=== PATIENT | female | born 1960 | race Caucasian/White ===

== ENCOUNTER 2017-12-29 11:10 | Inpatient (IN) | payer MEDICARE, MEDICAID ==
[~2017-12-29] VITALS: Ht 157.5 cm; Wt 75.7 kg
[2017-12-29 11:39] VITALS: BP 137/76
[2017-12-29] MEDS ORDERED: HALOPERIDOL 5 MG TABLET PO PRN (11:45)
[2017-12-29] MEDS ORDERED: LORazepam 2 MG TABLET PO PRN (11:45)
[2017-12-29] MEDS ORDERED: ZOLPIDEM TARTRATE 10 MG TABLET PO PRN (11:45)
[2017-12-29] MEDS ORDERED: OXYC10 PO (12:42)
[2017-12-29] MEDS ORDERED: HYDR-308 PO (12:42)
[2017-12-29] MEDS ORDERED: BUPR100 PO (12:42)
[2017-12-29] MEDS ORDERED: TRAZ150 PO (12:42)
[2017-12-29] MEDS ORDERED: RISP4 PO (12:42)
[2017-12-29] MEDS ORDERED: FLUO-191 PO (12:42)
[2017-12-29 12:45] VITALS: BP 110/69
[2017-12-29] MEDS ORDERED: BuPROPion HCL XL 150 MG ER TABLET PO SCH (15:00)
[2017-12-29] MEDS ORDERED: TraZODone HCL 150 MG TABLET PO SCH ×2 (15:00→21:00)
[2017-12-29 16:00] VITALS: BP 117/60
[2017-12-29] MEDS: RANITIDINE HCL 150 MG TABLET PO SCH (16:32)
[2017-12-29] MEDS ORDERED: ALBUTEROL SULFATE HFA 90 MCG/PUFF 8 GM INHALER IH PRN (17:00)
[2017-12-29] MEDS ORDERED: MAGNESIUM HYDROXIDE SUSPENSION 30 ML UDCUP PO PRN (17:00)
[2017-12-29] MEDS ORDERED: ACETAMINOPHEN 325 MG TABLET PO PRN (17:00)
[2017-12-29] MEDS ORDERED: BENZOCAINE/MENTHOL LOZENGE MM PRN (17:00)
[2017-12-29] MEDS ORDERED: MAG HYDROX/AL HYDROX/SIMETH ES 30 ML SUSPENSION UDCUP PO PRN (17:00)
[2017-12-29] MEDS ORDERED: PETROLATUM,WHITE 71 GM JELLY TP PRN (17:00)
[2017-12-29] MEDS ORDERED: ONDANSETRON HCL 4 MG TABLET PO PRN (17:00)
[2017-12-29] MEDS ORDERED: IBUPROFEN 600 MG TABLET PO PRN (17:00)
[2017-12-29] MEDS ORDERED: BACITRACIN 28.4 GM OINTMENT TP PRN (17:00)
[2017-12-29] MEDS ORDERED: CloNIDine HCL 0.1 MG TABLET PO PRN (17:00)
[2017-12-29] MEDS ORDERED: LOPERAMIDE HCL 2 MG CAPSULE PO PRN (17:00)
[2017-12-29] MEDS: RisperiDONE 2 MG TABLET PO SCH (20:34)
[2017-12-29] MEDS: TraZODone HCL 150 MG TABLET PO SCH (20:34)
[2017-12-30 07:01] VITALS: BP 127/70
[2017-12-30] MEDS: RANITIDINE HCL 150 MG TABLET PO SCH (08:01)
[2017-12-30] MEDS: RisperiDONE 2 MG TABLET PO SCH ×2 (08:01→20:23)
[2017-12-30] MEDS: LITHIUM CARBONATE 300 MG CAPSULE PO SCH ×2 (08:01→16:13)
[2017-12-30] MEDS: BuPROPion HCL 150 MG SR TABLET PO SCH (08:01)
[2017-12-30 08:06] VITALS: BP 114/63
[2017-12-30 08:19] LABS: BASOPHILS % (AUTO) 0.7 % (0.0-2.0); EOSINOPHILS % (AUTO) 5.5 % (1.0-6.0); HEMATOCRIT 34.8 % (36-46); HEMOGLOBIN 12.1 g/dL (12.0-16.0); LYMPHOCYTES % (AUTO) 38.5 % (22.0-44.0); MEAN CORPUSCULAR HGB CONC 34.7 G/dL (31.0-37.0); MEAN CORPUSCULAR VOLUME 92 fL (80-100); MONOCYTES # (AUTO) 0.6 K/uL (0.1-1.0); MONOCYTES % (AUTO) 11.6 % (2.0-9.0); NEUTROPHILS # (AUTO) 2.3 K/uL (1.8-7.7); NEUTROPHILS % (AUTO) 43.7 % (40.0-70.0); PLATELET COUNT (AUTO) 219 K/uL (150-450); RED BLOOD CELL COUNT(AUTO) 3.77 MIL/uL (4.00-5.20); RED CELL DISTRIBUTION WIDTH 14.1 % (11.5-14.5)
[2017-12-30 08:43] LABS: HEMOGLOBIN A1C 5.3 % (4.5-6.2)
[2017-12-30] MEDS ORDERED: OMEPRAZOLE 20 MG CAPSULE PO SCH (09:00)
[2017-12-30] MEDS ORDERED: BuPROPion HCL 75 MG TABLET PO SCH (09:00)
[2017-12-30] MEDS ORDERED: DOCUSATE SODIUM 100 MG CAPSULE PO SCH (09:00)
[2017-12-30 09:41] LABS: ALANINE AMINOTRANSFERASE 44 U/L (12-78); ALKALINE PHOSPHATASE 75 U/L (46-116); ANION GAP 10 mmol/L (8-16); ASPARTATE AMINOTRANSFERASE 23 U/L (15-37); BILIRUBIN,TOTAL 0.4 mg/dL (0.1-1.0); CALCIUM, TOTAL 8.6 mg/dL (8.8-10.5); CARBON DIOXIDE 23 mmol/L (22-29); CHLORIDE 110 mmol/L (98-107); CHOL/HDL RATIO 2.5 (3.9-5.7); CHOLESTEROL 148 mg/dL (131-200); CREATININE 0.84 mg/dL (0.60-1.30); FREE T4 (FREE THYROXINE) 0.99 ng/dL (0.76-1.46); GLOMERULAR FILTR. RATE CALC > 60 mL/min (>60); GLUCOSE,RANDOM 76 mg/dL (70-110); HDL CHOLESTEROL 59 mg/dL (40-60); LDL CHOL (CALC.) 82 mg/dL (0-130); POTASSIUM 3.8 mmol/L (3.5-5.1); SODIUM SERUM 143 mmol/L (136-145); THYROID STIMULATING HORMONE 0.42 uIU/mL (0.36-3.74); TOTAL PROTEIN, SERUM 5.9 g/dL (6.4-8.2); TRIGLYCERIDES 36 mg/dL (15-150); UREA NITROGEN, BLOOD 19 mg/dL (7-18)
[2017-12-30 16:03] VITALS: BP 120/71
[2017-12-30] MEDS: TraZODone HCL 150 MG TABLET PO SCH (20:23)
[2017-12-31 05:08] VITALS: BP 109/71
[2017-12-31] MEDS: RANITIDINE HCL 150 MG TABLET PO SCH (08:21)
[2017-12-31] MEDS: BuPROPion HCL 150 MG SR TABLET PO SCH (08:21)
[2017-12-31] MEDS: RisperiDONE 2 MG TABLET PO SCH (08:21)
[2017-12-31] MEDS: LITHIUM CARBONATE 300 MG CAPSULE PO SCH (08:21)
[2017-12-31 08:34] VITALS: BP 107/69
[2017-12-31] MEDS ORDERED: BUPR150T3 PO (09:32)
[2017-12-31] MEDS ORDERED: RISP2TAB76 PO (09:34)
[2017-12-31] MEDS ORDERED: LITH300C3 PO (09:35)
[2017-12-31] MEDS ORDERED: RANI150T7 PO (09:37)
[2017-12-31] MEDS ORDERED: LITHIUM CARBONATE 300 MG CAPSULE PO SCH (17:00)
[2017-12-31] MEDS ORDERED: RisperiDONE 2 MG TABLET PO SCH (21:00)
[2018-01-01] MEDS ORDERED: BuPROPion HCL 150 MG SR TABLET PO SCH (09:00)
== END 2017-12-31 11:45 | disposition home or self-care (01) | DRG 885 ==
LOC: B2S 11:45
PROVIDERS: ADMIT Psychiatry & Neurology Psychiatry; ATTEND Psychiatry & Neurology Psychiatry
DX: F25.9 Schizoaffective disorder, unspecified (principal); E66.9 Obesity, unspecified; F41.9 Anxiety disorder, unspecified; G47.00 Insomnia, unspecified; K21.9 Gastro-esophageal reflux disease without esophagitis; K59.00 Constipation, unspecified; Z82.49 Family history of ischemic heart disease and other diseases of the circulatory system; Z79.899 Other long term (current) drug therapy; Z68.30 Body mass index [BMI] 30.0-30.9, adult
CPT/HCPCS: 83036; 84439; 84443